=== PATIENT | female | born 2000 | race Two or more races ===

== ENCOUNTER 2024-12-08 19:00 | Emergency (ER) | payer MEDICAID, SELFPAY ==
[2024-12-08 19:03] VITALS: BMI 27.9
[2024-12-08 19:34] VITALS: BP 123/67; PULSE 70; RESP 18; TEMP 37.1; O2SAT 97
--- NOTE | 2024-12-08 20:03 | XR_ITS ---
Examination: Right wrist 2 views Technique : AP lateral right wrist 2 views Date and time: December 08, 2024, 2018 hrs. Indications: Injury to the wrist 8 days ago, wrist pain. Findings: Acute fractures distal radial metaphysis, no significant displacement Fracture ulnar styloid tip. Carpal bones intact Impression: Acute fractures distal radial metaphysis without significant displacement.
--- NOTE | 2024-12-08 20:14 | PD.EDEXREM ---
ED Extremity Problem RME/HPI General Chief complaint: Extremity Problem,Nontraumatic Stated complaint: RIGHT ARM PAIN, SPLINT FEELS MORE THIGH Time Seen by Provider: 12/08/24 19:06 Arrival date/time: 12/08/24 19:00 This is a case of 24-year-old female with no medical history came in in the emergency room due to reevaluation of the distal radial fracture right patient injured his right wrist December 03, 2024 due to fall and was seen by the other emergency room x-ray was done a splint was applied patient is unable to see an orthopedic surgeon does decided to sought consult here and wanted to reapply the splint patient denies any numbness weakness or tingling sensation Limitations: no limitations Related Data Previous Rx's ?Medication ?Instructions ?Recorded docusate sodium 100 mg capsule 100 mg PO BID #60 caps 06/06/23 (Colace) ibuprofen 600 mg tablet 600 mg PO Q6H PRN pain #90 tabs 06/06/23 lanolin 50 % topical ointment 1 applic topical TID PRN skin 06/06/23 irritation #15 tubes ibuprofen 800 mg tablet 800 mg PO Q8H PRN pain #20 tabs 12/08/24 Allergies Allergy/AdvReac Type Severity Reaction Status Date / Time No Known Allergies Allergy Verified 12/08/24 19:02 Review of Systems Review of Systems Systems Reviewed: All systems reviewed, normal except as documented Constitutional Constitutional: Reports system reviewed and no additional complaints, except as documented and Reports as per HPI Cardiovascular Cardiovascular: Reports system reviewed and no additional complaints, except as documented and Reports as per HPI Respiratory Respiratory: Reports system reviewed and no additional complaints, except as documented and Reports as per HPI Gastrointestinal Gastrointestinal: Reports system reviewed and no additional complaints, except as documented and Reports as per HPI Musculoskeletal Musculoskeletal: Reports system reviewed and no additional complaints, except as documented and Reports as per HPI Neurologic Neurologic: Reports system reviewed and no additional complaints, except as documented and Reports as per HPI Past Medical History Past Medical History NEUROLOGIC: Negative Neurological Disorders CARDIAC: Negative Cardiac Disorders or Congestive Heart Failure RESPIRATORY: Negative Chronic Obstructive Pulmonary Disease (COPD) GASTROINTESTINAL: Positive Gastrointestinal Disorders and Obesity GENITOURINARY: Positive Genitourinary Disorders (UTI); Negative Renal Disease REPRODUCTIVE: Positive Previous Pregnancies; Negative Endometriosis, Pelvic Inflammatory Disease or Uterine Prolapse MUSCULOSKELETAL: Negative Musculoskeletal Disorders ENDOCRINE: Positive Endocrine Disorders; Negative Diabetes Mellitus Type 1 or Diabetes Mellitus Type 2 HEMATOLOGIC: Negative Blood Disorders OTHER HISTORY: Negative Autoimmune Disease Family History FAMILY HISTORY: Positive Family Cardiac Disorders (grandmother-HTN); Negative Family Psychiatric Problems, Family Respiratory Disorders, Family Gastrointestinal Problems, Family Cancer, Family Surgery or Family Anesthesia Reaction Surgical History SURGICAL: Negative Section Social History SMOKING STATUS: Never smoker ED Exam General Limitations: Present no limitations General appearance: Present alert, in no apparent distress and other (Patient is awake alert oriented not in distress nontoxic looking well-hydrated well-nourished) Head Head exam: Present atraumatic, normocephalic and normal inspection Eye Eye exam: Present normal appearance, PERRL and EOMI ENT ENT exam: Present normal exam, normal oropharynx and mucous membranes moist Neck Neck exam: Present normal inspection, full ROM and trachea midline; Absent tenderness, meningismus or lymphadenopathy Chest Chest inspection: Present normal inspection and symmetric chest wall rise; Absent tenderness Respiratory Respiratory exam: Present normal lung sounds bilaterally; Absent respiratory distress, wheezes, stridor, accessory muscle use or prolonged expiratory phase Cardiovascular Cardiovascular exam: Present regular rate, normal rhythm and normal heart sounds; Absent bradycardia, tachycardia, irregular rhythm, systolic murmur or diastolic murmur Abdominal Exam Abdominal exam: Present soft and normal bowel sounds Extremities Exam Extremities exam: Present normal inspection and full ROM Expanded Upper Extremity Exam Shoulder exam: Present normal inspection and full ROM; Absent tenderness or swelling Arm exam: Present normal inspection and full ROM; Absent tenderness or swelling Elbow exam: Present normal inspection and full ROM; Absent tenderness or swelling Forearm/Wrist exam: Present other (After removing the splint examination of the right wrist was performed noted mild to moderate tenderness on the right wrist but no swelling no crepitation no deformity no redness no cellulitis no signs and symptoms of compartment syndrome nor DVT ROM limited due to pain pulses were full and equal ca) Hand exam: Present normal inspection and full ROM; Absent tenderness or swelling Back Exam Back exam: Present normal inspection and full ROM Neurological Exam Neurological exam: Present alert, oriented X3, CN II-XII intact, normal gait and reflexes normal; Absent motor sensory deficit Psychiatric Psychiatric exam: Present normal affect and normal mood Skin Skin exam: Present warm, dry, intact and normal color Course Quality Measures VTE prophylaxis Orders Category Date Time Status XR wrist RT 2V Stat Exams 12/08/24 20:03 Stop Req Vital Signs Vital signs: Vital Signs Temperature 98.7 F 12/08/24 19:34 Pulse Rate 70 12/08/24 19:34 Respiratory Rate 18 12/08/24 19:34 Blood Pressure 123/67 12/08/24 19:34 Pulse Oximetry (%) 97 12/08/24 19:34 Oxygen Delivery Method Room Air 12/08/24 19:34 Oxygen saturation is 97% on room air Extremity Problem MDM Narrative MDM Narrative:: This is a case of 24-year-old female with no medical history came in in the emergency room due to reevaluation of the distal radial fracture right patient injured his right wrist December 03, 2024 due to fall and was seen by the other emergency room x-ray was done a splint was applied patient is unable to see an orthopedic surgeon does decided to sought consult here and wanted to reapply the splint patient denies any numbness weakness or tingling sensation physical examination patient is awake alert oriented not in distress nontoxic looking patient noted to have mild to moderate tenderness on the right wrist after removing the splint but no signs and symptoms of compartment syndrome ROM is limited due to pain pulses were full and equal capillary refill less than 2 seconds no swelling noted the application of the splint was applied imaging was not performed patient to show me the results of the x-ray patient only needs to see an orthopedic surgeon for further evaluation and treatment of the fracture Patient was discharged with comfortable condition walking with stable gait. Patient verbalized no further complains explained diagnosis and answered patient question. Patient is comfortable with the proposed management plan including the need to follow up with his/her primary care physician and any specialist if applicable Discussed patient for any urgent condition or worsening sx, He/She needed to go to emergency room immediately or call 911. Patient acknowledge the responsibility to follow up as instructed and to monitor her/his symptoms. For any persistence of the symptoms for more than 3-5 days return precaution advised. Discussed the result of the test and was given printed discharge instruction Patient data External records reviewed:: [facility] previous records Clinical information provided by:: none Social determinants that could affect healthcare access:: none Patient has the following chronic illnesses:: None How is presenting disease/condition affected by chronic disease/condition?: no chronic disease Evaluation data The following diagnostics were reviewed and interpreted by me:: other (specify) (None) Lab and/or radiology exams considered but not ordered:: None Interpretation Summary: None Medications / Prescriptions Medications or Prescriptions considered but not ordered:: Given Medication administrations:: Given Consultations Consultation(s) initiated? (list below): No Diagnosis Extremity Problem Differential Diagnosis: other (Distal radial fracture right) Most likely diagnosis given after review of the tests above:: Distal radial fracture right Admission Indicated Admission indicated?: not indicated Explain why admission is indicated or not indicated:: Not indicated Admission Request Was there a request for admission?: No Admission Attestation Admission request attestation: Not indicated Disposition Plan Disposition Plan: Discharge Discharge Attestation Discharge Attestation: The patient and all family members were given an opportunity to ask questions and understood the discharge instructions. Discharge instructions specifically effects, indications for sooner follow up or return to the emergency department, and the expected course of current diagnosis. Patient condition: Stable Discharge Plan Plan Patient Disposition: HOME (Self Care) Patient condition on transfer: Stable Prescriptions/Referrals Prescriptions/Med Rec: New ibuprofen 800 mg tablet 800 mg PO Q8H PRN (Reason: pain) Qty: 20 0RF No Action docusate sodium [Colace] 100 mg capsule 100 mg PO BID Qty: 60 0RF ibuprofen 600 mg tablet 600 mg PO Q6H PRN (Reason: pain) Qty: 90 0RF lanolin 50 % ointment 1 applic topical TID PRN (Reason: skin irritation) Qty: 15 0RF Referrals: Joe Choudhury MD [Physician, Orthopedics] - 12/10/24 Referral Note: For further evaluation and treatment of distal radial fracture right Problem List Clinical Impression: Distal radius fracture, right Patient/Caregiver Discharge Instructions Education Materials: Wrist Fracture, ED RICE Additional Instructions: Follow-up with your primary care physician in 2 days for reevaluation worsening symptoms or any emergent concerns such as numbness weakness tingling sensation return to the emergency room immediate call 911 ice pack and warm compress as needed for pain keep the splint in place until cleared by your primary care physician take your medication as the directed Print Language: Kosovan Stand Alone Forms: Rita Award Info., Patient Portal Info Letter PA/JOSE Supervising Physician RITCHIE/JOSE Supervising Physician: Dr. Donaldson
== END 2024-12-08 21:23 | disposition home or self-care (01) ==
PROVIDERS: Emergency Provider Emergency Medicine
DX: S52.501A Unspecified fracture of the lower end of right radius, initial encounter for closed fracture (principal); W19.XXXA Unspecified fall, initial encounter
CPT/HCPCS: 73100; 99283